=== PATIENT | female | born 1985 | race African-American/Black ===

== ENCOUNTER 2017-07-20 01:42 | Emergency (ER) | payer OTHER, MEDICAID ==
[2017-07-20] MEDS: traMADol 50 MG TAB PO (04:37)
[2017-07-20] MEDS: KETOROLAC 60 MG INJ IM (04:41)
== END 2017-07-20 04:47 | disposition home or self-care (01) ==
LOC: FTE 01:42
DX: K08.89 Other specified disorders of teeth and supporting structures (principal)
CPT/HCPCS: 81025; 96372; 99284-25